=== PATIENT | female | born 1960 | race Caucasian/White ===

== ENCOUNTER 2018-11-02 16:23 | Emergency (ER) | payer MEDICARE ==
[2018-11-02 16:58] VITALS: BP 129/68
[2018-11-02] MEDS ORDERED: DIPH/PERTUSS(ACELL)/TETANUS VAC/PF 0.5 ML SYR (>=10YO) IM ONE (18:16)
[2018-11-02] MEDS ORDERED: IBUPROFEN 800 MG TABLET PO ONE (18:16)
--- NOTE | 2018-11-02 18:46 | RADIOLOGY REPORT (SQ) ---
EXAM DESCRIPTION: FOOT RIGHT 2 VIEWS COMPLETED DATE/TIME: 11/02/2018 6:36 pm REASON FOR STUDY: fell thru vent COMPARISON: None. NUMBER OF VIEWS: Two views. TECHNIQUE: AP and lateral radiographic images acquired of the right foot. LIMITATIONS: None. FINDINGS: MINERALIZATION: Osteopenic BONES: No acute fracture or malalignment. Old postsurgical changes from bunion corrective surgery. Faintly radiopaque sutures over the talonavicular joint JOINTS: Advanced joint space narrowing and bony spurring at talonavicular and navicular-cuneiform mark nts SOFT TISSUES: No soft tissue swelling. No foreign body. OTHER: No other significant finding. IMPRESSION: No acute fracture TECHNICAL DOCUMENTATION: JOB ID: [id number] [employer]- All Rights Reserved Reading location - IP/workstation name: [email or web address]
--- NOTE | 2018-11-02 18:46 | ER Document Report ---
HPI - HPI Patient complains to provider of: fall thru vent in floor Time Seen by Provider: 11/02/18 18:10 Onset: Just prior to arrival Onset/Duration: Sudden Quality of pain: Achy Pain Level: 2 Context: Patient presents to the emergency department with complaints of right knee right tib-fib right foot pain. She reports she was walking across the floor in a trailer when she fell into a vent. She reports she fell in the vent all the way up to her knee. Reports she is had extensive surgery done to her right foot and is worried about that. She also has an abrasion to her right medial proximal lower calf. She also has a small abrasion to her right medial foot. She did not hit her head. Denies change in LOC. She was visiting from [place]. Associated Symptoms: None Exacerbated by: Walking Relieved by: Denies Similar symptoms previously: No Recently seen / treated by doctor: No - MUSCULOSKELETAL Musculoskeletal: REPORTS: Extremity pain Past Medical History - General Information source: Patient - Social History Smoking Status: Never Smoker Chew tobacco use (# tins/day): No Frequency of alcohol use: None Drug Abuse: None Lives with: Family Family History: None Patient has suicidal ideation: No Patient has homicidal ideation: No Pulmonary Medical History: Reports: Hx Asthma, Hx COPD Renal/ Medical History: Denies: Hx Peritoneal Dialysis Past Surgical History: Reports: Hx Orthopedic Surgery Vertical Provider Document - CONSTITUTIONAL Agree With Documented VS: Yes Exam Limitations: No Limitations General Appearance: WD/WN, Mild Distress - winces with palpation to right knee - INFECTION CONTROL TRAVEL OUTSIDE OF THE [place] IN LAST 30 DAYS: No - HEENT HEENT: Atraumatic, Normocephalic - NECK Neck: Supple - RESPIRATORY Respiratory: No Respiratory Distress - MUSCULOSKELETAL/EXTREMETIES Musculoskeletal/Extremeties: MAEW, FROM, Tender - right medial lower leg proximal with hematoma noted, right foot ttp, no obvious deformity, no swelling to foot. good pedal pulse good cap refill - NEURO Level of Consciousness: Awake, Alert, Appropriate Motor/Sensory: No Motor Deficit - DERM Integumentary: Warm, Dry, Laceration - abrasion right medial lower leg proximally, no active bleeding, small scratch to right medial foot. Adult Front & Back Diagram: 1 - hematoma abrasion Course - Re-evaluation Re-evalutation: 11/02/18 19:01 Instructed on negative x-rays. Patient instructed on care of hematoma. She is returning to [place] on Monday. She will follow-up with her primary care provider. Patient offered crutches and declined. Dictation of this chart was performed using voice recognition software; therefore, there may be some unintended grammatical errors. - Vital Signs Vital signs: Temp Pulse Resp BP Pulse Ox 98.0 F 81 18 129/68 H 99 11/02/18 16:57 11/02/18 16:57 11/02/18 16:57 11/02/18 16:57 11/02/18 16:57 - Diagnostic Test Radiology reviewed: Image reviewed, Reports reviewed - EXAM DESCRIPTION: FOOT RIGHT 2 VIEWS COMPLETED DATE/TIME: 11/02/2018 6:36 pm REASON FOR STUDY: fell thru vent COMPARISON: None. NUMBER OF VIEWS: Two views. TECHNIQUE: AP and lateral radiographic images acquired of the right foot. LIMITATIONS: None. FINDINGS: MINERALIZATION: Osteopenic BONES: No acute fracture or malalignment. Old postsurgical changes from bunion corrective surgery. Faintly radiopaque sutures over the talonavicular joint JOINTS: Advanced joint space narrowing and bony spurring at talonavicular and navicular-cuneiform joints SOFT TISSUES: No soft tissue swelling. No foreign body. OTHER: No other significant finding. IMPRESSION: No acute fracture EXAM DESCRIPTION: KNEE RIGHT 3 VIEWS COMPLETED DATE/TIME: 11/02/2018 6:36 pm REASON FOR STUDY: fell thru vent COMPARISON: None. NUMBER OF VIEWS: Three views. TECHNIQUE: AP, lateral, and sunrise patella radiographic images acquired of the right knee. LIMITATIONS: None. FINDINGS: MINERALIZATION: Osteopenic BONES: No acute fracture or dislocation. No worrisome bone lesions. JOINT: No suprapatellar knee joint effusion. Lateral patellar subluxation on the sunrise view. Patellofemoral joint space narrowing. SOFT TISSUES: No soft tissue swelling. No radio-opaque foreign body. OTHER: No other significant finding. IMPRESSION: No acute fracture or malalignment TECHNICAL DOCUMENTATION: JOB ID: [id number]- All Rights Reserved Reading location - IP/workstation name: [email or web address] Procedures - Immobilization Right Knee Pre-Proc Neuro Vasc Exam: Normal Immobilizer type: Salvador wrap Performed by: PCT Post-Proc Neuro Vasc Exam: Unchanged from pre-exam Alignment checked and good: Yes Discharge - Discharge Clinical Impression: fall thru vent, abrasions, Foot pain, right Hematoma of right lower extremity Qualifiers: Encounter type: initial encounter Qualified Code(s): S80.11XA - Contusion of right lower leg, initial encounter Condition: Stable Disposition: HOME, SELF-CARE Instructions: Salvador Wrap ([facility]), Hematoma ([facility]), Use of [id number] Ibuprofen ([facility]), Tetanus Immunization Given ([facility]) Additional Instructions: *You have been evaluated after falling into a vent, for foot and lower leg pain, abrasions *Maintain the salvador wrap for comfort *Rest/Ice/Elevate your knee and foot *Take motrin as indicated for pain *Follow up with your orthopedic or primary care provider upon return to [place] *Return to ED for worsening condition, changes, needs Forms: Elevated Blood Pressure
== END 2018-11-02 19:06 | disposition home or self-care (01) ==
LOC: ER 16:23
DX: S80.11XA Contusion of right lower leg, initial encounter (principal); S90.811A Abrasion, right foot, initial encounter; M25.561 Pain in right knee; M79.671 Pain in right foot; W13.3XXA Fall through floor, initial encounter; J44.9 Chronic obstructive pulmonary disease, unspecified
CPT/HCPCS: 99283; 90471; 73620; 73562; 90715; A9270